=== PATIENT | male | born 2000 | race Caucasian/White ===

== ENCOUNTER 2021-01-25 02:51 | Outpatient (CLI) | payer BC, SELFPAY ==
[2021-01-25 17:20] LABS: Abs Immature Grans 0.02 10^3/uL (0.0-0.06); Absolute Basophil Count 0.07 10^3/uL (0.0-0.2); Absolute Eosinophil Count 0.25 10^3/uL (0.0-0.7); Absolute Lymphocyte Count 2.86 10^3/uL (1.2-3.4); Absolute Monocyte Count 0.79 10^3/uL (0.1-0.8); Absolute Neutrophil Count 3.51 10^3/uL (1.2-6.7); Basophils % 0.9; Eosinophils % 3.3; HCT 45.5 % (40.0-50.0); HGB 15.2 g/dL (13.5-17.5); Immature Grans % 0.3; Lymphocytes % 38.1; MCH 27.9 pg (27.0-33.0); MCHC 33.4 % (32.0-36.0); MCV 83.5 fL (80-95); MPV 10.6 fL (8.0-11.0); Monocytes % 10.5; Neutrophils % 46.9; Nucleated RBC 0 %; Platelet Count 324 10^3/uL (130-400); RBC 5.45 10^6/uL (4.36-5.78); RDW 12.8 % (11.8-14.1); RDW-SD 38.6 fL
[2021-01-25 17:56] LABS: ALT 147 U/L (16-63); AST 47 U/L (15-37); Albumin 4.3 g/dL (3.4-5.0); Alkaline Phosphatase 62 U/L (46-116); Anion Gap 9.6 mmol/L (3-11); BUN 15 mg/dL (7-18); Bilirubin, Total 0.3 mg/dL (0.2-1.0); CO2 29.4 mmol/L (21.0-32.0); CREATININE 1.1 mg/dL (0.70-1.30); Calcium 9.6 mg/dL (8.5-10.1); Chloride 102 mmol/L (98-107); Glucose 85 mg/dL (74-106); Potassium 4.2 mmol/L (3.5-5.1); Sodium 141 mmol/L (136-145)
[2021-01-27 15:07] LABS: Levetiracetam 8.6 mcg/mL
== END 2021-01-25 02:52 | disposition home or self-care (01) ==
PROVIDERS: PCP Pediatrics; Visit Provider Psychiatry & Neurology Neurology
DX: G40.319 Generalized idiopathic epilepsy and epileptic syndromes, intractable, without status epilepticus (principal); Z51.81 Encounter for therapeutic drug level monitoring; Z79.899 Other long term (current) drug therapy
CPT/HCPCS: 36415; 80053; 80175; 80177; 85025

== ENCOUNTER 2021-03-08 03:55 | Outpatient (CLI) | payer BC, SELFPAY ==
[2021-03-08 17:11] LABS: ALT 119 U/L (16-63); AST 41 U/L (15-37); Albumin 4.1 g/dL (3.4-5.0); Alkaline Phosphatase 57 U/L (46-116); Bilirubin, Direct 0.1 mg/dL (0.0-0.2); Bilirubin, Total 0.3 mg/dL (0.2-1.0); Total Protein 7.8 g/dL (6.4-8.2)
== END 2021-03-08 03:56 | disposition home or self-care (01) ==
LOC: LBO 03:55
PROVIDERS: Visit Provider Psychiatry & Neurology Neurology
DX: R74.8 Abnormal levels of other serum enzymes (principal)
CPT/HCPCS: 36415; 80076

== ENCOUNTER 2022-06-01 02:23 | Outpatient (CLI) | payer BC, SELFPAY ==
[2022-06-01 11:50] LABS: Abs Immature Grans 0.01 10^3/uL (0.0-0.06); Absolute Basophil Count 0.09 10^3/uL (0.0-0.2); Absolute Eosinophil Count 0.36 10^3/uL (0.0-0.7); Absolute Lymphocyte Count 2.81 10^3/uL (1.2-3.4); Absolute Monocyte Count 0.67 10^3/uL (0.1-0.8); Basophils % 1.4; Eosinophils % 5.6; HCT 42.1 % (40.0-50.0); HGB 13.9 g/dL (13.5-17.5); Immature Grans % 0.2; Lymphocytes % 43.6; MCH 28.5 pg (27.0-33.0); MCV 86 fL (80-95); MPV 10.2 fL (8.0-11.0); Monocytes % 10.4; Neutrophils % 38.8; Platelet Count 294 10^3/uL (130-400); RBC 4.87 10^6/uL (4.36-5.78); RDW 12.2 % (11.8-14.1); RDW-SD 38.8 fL; WBC 6.44 10^3/uL (4.4-10.8)
[2022-06-01 13:34] LABS: ALT 79 U/L (16-63); AST 27 U/L (15-37); Albumin 4.3 g/dL (3.4-5.0); Alkaline Phosphatase 45 U/L (46-116); Anion Gap 10.3 mmol/L (3-11); BUN 14 mg/dL (7-18); Bilirubin, Total 0.4 mg/dL (0.2-1.0); CO2 26.7 mmol/L (21.0-32.0); CREATININE 1.1 mg/dL (0.70-1.30); Calcium 9.4 mg/dL (8.5-10.1); Chloride 100 mmol/L (98-107); Estimated GFR 97.95 (mL/min/1.73m2); Glucose 91 mg/dL (74-106); Sodium 137 mmol/L (136-145); Total Protein 8.1 g/dL (6.4-8.2)
[2022-06-03 10:24] LABS: Lamotrigine 3.8 mcg/mL (2.5 - 15.0)
[2022-06-03 13:33] LABS: Levetiracetam 21.4 mcg/mL
== END 2022-06-01 02:24 | disposition home or self-care (01) ==
PROVIDERS: Visit Provider Psychiatry & Neurology Neurology
DX: G40.319 Generalized idiopathic epilepsy and epileptic syndromes, intractable, without status epilepticus (principal)
CPT/HCPCS: 36415; 80053; 80175; 80177; 85025

== ENCOUNTER 2025-06-12 04:16 | Outpatient (CLI) | payer BC, SELFPAY | END 2025-06-12 04:17 | disposition home or self-care (01) | LOC: LBO 04:16 | PROVIDERS: Visit Provider Nurse Practitioner Primary Care | DX: G40.802 Other epilepsy, not intractable, without status epilepticus (principal) | CPT/HCPCS: 36415; 80175 ==